=== PATIENT | male | born 1970 | race Hispanic/Latino ===

== ENCOUNTER 2018-05-18 14:16 | Emergency (ER) | payer BC, OTHER ==
[~2018-05-18] VITALS: Ht 172.7 cm; Wt 72.1 kg
[2018-05-18 15:56] LABS: BASOPHILS # (AUTO) 0.1 (0.0-0.1); BASOPHILS % 0.6 % (0.0-1.0); EOSINOPHILS # (AUTO) 0.2 (0.0-0.4); EOSINOPHILS % 2.1 % (0.0-6.0); HEMATOCRIT 45.5 % (38.2-49.6); HEMOGLOBIN 15.3 g/dL (14.0-18.0); LYMPHOCYTES # (AUTO) 2.3 (1.0-3.2); MEAN CORPUSCULAR HEMOGLOBIN 30.8 pg (28-32); MEAN CORPUSCULAR HGB CONC 33.6 g/dL (31-35); MEAN CORPUSCULAR VOLUME 91.7 fL (81-99); MONOCYTES # (AUTO) 0.5 (0.2-0.8); NEUTROPHILS # (AUTO) 5.9 (2.1-6.9); PLATELET COUNT 348 x10e3/uL (140-360); RED BLOOD COUNT 4.96 x10e6/uL (4.3-5.7)
[2018-05-18 16:00] LABS: BILIRUBIN,URINE NEGATIVE (NEGATIVE); CLARITY,URINE CLEAR (CLEAR); COLOR,URINE OTHER (YELLOW); KETONES,URINE NEGATIVE (NEGATIVE); LEUKOCYTE ESTERASE ,URINE NEGATIVE (NEGATIVE); NITRITE,URINE NEGATIVE (NEGATIVE); PROTEIN,URINE DIPSTICK NEGATIVE (NEGATIVE); URINE UROBILINOGEN 0.2 mg/dL (0.2 - 1)
[2018-05-18 16:10] LABS: RBC,URINE >50 /HPF (0-5)
[2018-05-18 16:18] LABS: ALANINE AMINOTRANSFERASE 30 IU/L (0-55); ALBUMIN 4.2 g/dL (3.5-5.0); ALBUMIN/GLOBULIN RATIO 1.2 (0.8-2.0); ALKALINE PHOSPHATASE 66 IU/L (40-150); ANION GAP 13.4 mmol/L (8-16); BLOOD UREA NITROGEN 9 mg/dL (7-26); BUN/CREATININE RATIO 9 (6-25); CALCIUM 9.6 mg/dL (8.4-10.2); CARBON DIOXIDE 27 mmol/L (22-29); CHLORIDE 99 mmol/L (98-107); CREATININE, SERUM 1.03 mg/dL (0.72-1.25); EST GLOMERULAR FILTRATION RATE > 60 ML/MIN (60-); GLUCOSE 83 mg/dL (74-118); POTASSIUM 3.4 mmol/L (3.5-5.1); SODIUM 136 mmol/L (136-145)
[2018-05-18] MEDS ORDERED: MORPHINE SULFATE INJ 4 MG/ML INJ IV STA (16:36)
--- NOTE | 2018-05-18 17:10 | Diagnostic Imaging Report ---
EXAM: CT Abdomen and Pelvis WITHOUT contrast INDICATION: Right flank pain. \S\stone protocol \[id number] \S\1620 \S\Y COMPARISON: CT dated 07/12/2015 TECHNIQUE: Abdomen and pelvis were scanned utilizing a multidetector helical scanner from the lung base to the pubic symphysis without administration of IV contrast. Absence of intravenous contrast decreases sensitivity for detection of focal lesions and vascular pathology. Coronal and sagittal reformations were obtained. Renal stone protocol was performed. IV CONTRAST: None ORAL CONTRAST: Water COMPLICATIONS: None RADIATION DOSE: Total DLP: 331.31 mGy*cm Estimated effective dose: (DLP x 0.015 x size factor) mSv CTDIvol has been reviewed. It is below the limits set by the Radiation Protocol Committee (RPC). FINDINGS: LINES and TUBES: None. LOWER THORAX: Unremarkable. Mild left basilar dependent atelectasis. HEPATOBILIARY: Unenhanced liver is unremarkable. No biliary ductal dilation. GALLBLADDER: Contracted, limiting evaluation. No wall thickening. SPLEEN: No splenomegaly. PANCREAS: No ductal dilatation. 1 cm hypodensity in pancreatic uncinate process (series 3, image 61). ADRENALS: No adrenal nodules KIDNEYS/URETERS: No hydronephrosis. No cystic or solid mass lesions. No stones. GI TRACT: No abnormal distention, wall thickening, or evidence of bowel obstruction. There are diverticula within the colon without evidence of diverticulitis. Appendix is normal. PELVIC ORGANS/BLADDER: Unremarkable. LYMPH NODES: No lymphadenopathy. VESSELS: Unremarkable. PERITONEUM / RETROPERITONEUM: No free air or fluid. BONES: Unremarkable. Left superior acetabular sclerotic focus, likely a bone island. SOFT TISSUES: Unremarkable. IMPRESSION: 1. No nephrolithiasis or evidence of obstructing urolithiasis. 2. Colonic diverticulosis without evidence of diverticulitis. 3. 1 cm hypodensity in pancreatic uncinate process. Recommend nonurgent pancreatic mass protocol MRI for characterization. Signed by: Dr. Ciaran Richard MD on 05/18/2018 5:07 PM
[2018-05-18] MEDS ORDERED: KETOROLAC TROMETHAMINE 30 MG/ML VIAL ONE (18:21)
[2018-05-18] MEDS ORDERED: KETOROLAC TROMETHAMINE 30 MG/ML VIAL IV ONE (18:30)
== END 2018-05-18 18:46 | disposition home or self-care (01) ==
LOC: ER 14:16
DX: M54.5 Low back pain (principal); R31.0 Gross hematuria; F17.210 Nicotine dependence, cigarettes, uncomplicated
CPT/HCPCS: 36415; 74176; 80053; 81001; 85025; 99284; J1885

== ENCOUNTER 2020-04-27 17:13 | Emergency (ER) | payer OTHER ==
[~2020-04-27] VITALS: Ht 172.7 cm; Wt 68.0 kg
[2020-04-27] MEDS ORDERED: ONDANSETRON HCL 4 MG ORAL DISINTEGRATING TAB PO PRN (17:30)
--- NOTE | 2020-04-27 17:30 | NUR ---
ABRAN CCT AT BEDSIDE SITTER.
--- NOTE | 2020-04-27 17:41 | Emergency Department Note ---
History of Present Illnes History of Present Illness History of Present Illness This is a 49 year old male hx of depression brought in by his for depression, been stressed from work, binge drinking for 5 days, stopped drinking 2 days ago, told his "wanting jumping over the bridge" yesterday. He talked to Dr Dianne Flores few days ago, prescribed some Ativan over the phone but the pills not working. Arrival Mode: Car Town Manager Required: No Onset (how long ago): week(s) Severity: severe Onset quality: gradual Duration (how long): week(s) Progression: worsening Relieving factors: none Exacerbating factors: none Associated symptoms: Reports loss of appetite Treatments prior to arrival: none Previous service: medications given (CARLIN ECHEVERRIA MD) Past Medical/Family History Physician Review I have reviewed the patient's past medical and family history. Any updates have been documented here. (CARLIN ECHEVERRIA MD) Past Medical History Recent Fever: No Clinical Suspicion of Infectio: No New/Unexplained Change in Ment: No Other Medical History: RUPTURE OF ESOPHAGUS Past Surgical History: None (CARLIN ECHEVERRIA MD) Social History Smoking Cessation: Unknown if ever smoked Alcohol Use: Occasional Any Illegal Drug Use: No (CARLIN ECHEVERRIA MD) Family History Family history of heart diseas: No (CARLIN ECHEVERRIA MD) Other Last Tetanus: OOD Any Pre-Existing Lines (PICC,: No (CARLIN ECHEVERRIA MD) Review of Systems Review of Systems Constitutional: Reports no symptoms EENTM: Reports no symptoms Cardiovascular: Reports no symptoms Respiratory: Reports no symptoms Gastrointestinal: Reports no symptoms Genitourinary: Reports no symptoms Musculoskeletal: Reports no symptoms Integumentary: Reports no symptoms Neurological: Reports no symptoms Psychological: Reports as per HPI, Reports depressed, Reports emotional problems Endocrine: Reports no symptoms Hematological/Lymphatic: Reports no symptoms (CARLIN ECHEVERRIA MD) Physical Exam Related Data Allergies: Coded Allergies: No Known Allergies (Unverified , 05/18/18) Vital signs reviewed: Yes (CARLIN ECHEVERRIA MD) Physical Exam CONSTITUTIONAL Constitutional: Present well-developed, Present well-nourished HENT HENT: Present normocephalic, Present atraumatic, Present oropharynx clear/moist, Present nose normal HENT L/R: Present left ext ear normal, Present right ext ear normal EYES Eyes: Reports PERRL, Reports conjunctivae normal NECK Neck: Present ROM normal PULMONARY Pulmonary: Present effort normal, Present breath sounds normal CARDIOVASCULAR Cardiovascular: Present regular rhythm, Present heart sounds normal, Present capillary refill normal, Present normal rate GASTROINTESTINAL Abdominal: Present soft, Present nontender, Present bowel sounds normal GENITOURINARY Genitourinary: Present exam deferred SKIN Skin: Present warm, Present dry MUSCULOSKELETAL Musculoskeletal: Present ROM normal NEUROLOGICAL Neurological: Present alert, Present oriented x 3, Present no gross motor or sensory deficits PSYCHOLOGICAL Psychological: Present judgement normal, Present other (depressed, denies active SI) (CARLIN ECHEVERRIA MD) Results Laboratory Lab results reviewed: Yes Laboratory comments labs ok (CARLIN ECHEVERRIA MD) Assessment & Plan Medical Decision Making MDM Diff Dx : depression, suicidal ideation, alcohol abuse. Patient without SI. Plan to discharge to home (RANCHO JACOME DO) Reassessment Reassessment time: 21:47 Reassessment Patient seen and evaluated by MAT team. Denies lethality at this time. No firearms in the household. Patient and spouse agreeable for outpatient f/u with PCP. (RANCHO JACOME DO) Assessment & Plan Final Impression: (1) Depression (2) Suicidal ideations (CARLIN ECHEVERRIA MD) Final Impression: (1) Depression (RANCHO JACOME DO) Depart Disposition: HOME, SELF-CARE CARLIN ECHEVERRIA MD Apr 27, 2020 17:41 RANCHO JACOME DO Apr 27, 2020 21:49
--- NOTE | 2020-04-27 17:50 | NUR ---
[facility] NOTIFED OF TRANSFER, DOC TO DOC COMPLETED BY DR ECHEVERRIA AND DR JACOME
--- NOTE | 2020-04-27 18:15 | NUR ---
report given to Rodrigo COY at [facility].
[2020-04-27 18:56] LABS: BASOPHILS % 0.3 % (0.0-1.0); EOSINOPHILS % 0.2 % (0.0-6.0); HEMATOCRIT 43.1 % (38.2-49.6); HEMOGLOBIN 14.6 g/dL (14.0-18.0); LYMPHOCYTES # (AUTO) 1.4 (1.0-3.2); LYMPHOCYTES % 10.6 % (18.0-39.1); MEAN CORPUSCULAR HEMOGLOBIN 30.5 pg (28-32); MEAN CORPUSCULAR HGB CONC 33.9 g/dL (31-35); MEAN CORPUSCULAR VOLUME 90.2 fL (81-99); MONOCYTES # (AUTO) 0.8 (0.2-0.8); MONOCYTES % 5.7 % (4.4-11.3); NEUTROPHILS # (AUTO) 11.3 (2.1-6.9); NEUTROPHILS % 82.8 % (38.7-80.0); PLATELET COUNT 398 x10e3/uL (140-360); RED BLOOD COUNT 4.78 x10e6/uL (4.3-5.7); RED CELL DISTRIBUTION WIDTH 12.7 % (11.7-14.4)
[2020-04-27 19:07] LABS: AMPHETAMINES SCREEN,URINE NEGATIVE (NEGATIVE); CLARITY,URINE CLEAR (CLEAR); COLOR,URINE YELLOW (YELLOW); KETONES,URINE NEGATIVE (NEGATIVE); LEUKOCYTE ESTERASE ,URINE NEGATIVE (NEGATIVE); NITRITE,URINE NEGATIVE (NEGATIVE); PHENCYCLIDINE SCREEN,URINE NEGATIVE (NEGATIVE); PROTEIN,URINE DIPSTICK NEGATIVE (NEGATIVE)
[2020-04-27 19:08] LABS: BACTERIA,URINE RARE /HPF; BENZODIAZEPINES SCREEN,URINE NEGATIVE (NEGATIVE); BILIRUBIN,URINE NEGATIVE (NEGATIVE); EPITHELIAL CELLS,URINE FEW /LPF; RBC,URINE 0-5 /HPF (0-5); URINE UROBILINOGEN 0.2 mg/dL (0.2 - 1); WBC,URINE (MAN) 0-5 /HPF (0-5)
[2020-04-27 19:14] LABS: ALANINE AMINOTRANSFERASE 23 IU/L (0-55); ALBUMIN 4.1 g/dL (3.5-5.0); ALBUMIN/GLOBULIN RATIO 1.2 (0.8-2.0); ALKALINE PHOSPHATASE 81 IU/L (40-150); ANION GAP 17.6 mmol/L (8-16); BLOOD UREA NITROGEN 10 mg/dL (7-26); BUN/CREATININE RATIO 11 (6-25); CALCIUM 9.2 mg/dL (8.4-10.2); CARBON DIOXIDE 22 mmol/L (22-29); CHLORIDE 101 mmol/L (98-107); CREATININE, SERUM 0.89 mg/dL (0.72-1.25); EST GLOMERULAR FILTRATION RATE > 60 ML/MIN (60-); GLUCOSE 105 mg/dL (74-118); POTASSIUM 3.6 mmol/L (3.5-5.1); SODIUM 137 mmol/L (136-145)
--- NOTE | 2020-04-27 19:52 | NUR ---
PT MEDICALLY CLEARED. MAT CALLED, SPOKE TO ELIEL.
--- NOTE | 2020-04-27 21:06 | NUR ---
MAT NURSE ARRIVED TO EVTIFFANIE PT.
--- NOTE | 2020-04-27 22:03 | NUR ---
PT DENIES SUICIDAL THOUGHTS. PT DENIES WANTING TO HURT OTHERS. PT STATES THAT HAS FOLLOW-UP APPOINTMENT C IN AM. PT STATES THAT IS GOING TO APPOINTMENT. PT GIVEN DC PAPERWORK. DC'D HOME AT THIS TIME.
== END 2020-04-27 22:05 | disposition home or self-care (01) ==
LOC: FSED 17:40 → ER 22:05
DX: R45.851 Suicidal ideations (principal); F32.9 Major depressive disorder, single episode, unspecified; F10.10 Alcohol abuse, uncomplicated; K22.8 Other specified diseases of esophagus
CPT/HCPCS: 36415; 80053; 80307; 80320; 81001; 81003; 85025; 99284